=== PATIENT | female | born 1995 | race African-American/Black ===

== ENCOUNTER 2020-07-28 22:58 | Emergency (ER) | payer OTHER ==
[~2020-07-28] VITALS: Ht 175.3 cm; Wt 149.7 kg
[2020-07-28 23:41] VITALS: Ht 175.3 cm; Wt 149.7 kg
[2020-07-29 00:34] LABS: microscopic required? NO
[2020-07-29 01:01] LABS: BASOPHIL % 1.5 % (0-2); PLATELET COUNT 215 x10^3mcL (130-400); RED CELL DISTRIBUTION WIDTH 12.7 % (11.5-14.5)
[2020-07-29 01:03] LABS: urine erythrocyte NEGATIVE (NEGATIVE)
[2020-07-29 01:15] LABS: CALCIUM 8.8 mg/dL (8.5-10.1); CARBON DIOXIDE 28.6 mmol/L (21-32); CHLORIDE SERUM 103 mmol/L (98-107); CREATININE SERUM 0.7 mg/dL (0.6-1.0); GFR1 > 60 mL/min; GLUCOSE SERUM 94 mg/dL (74-106); SODIUM SERUM 140 mmol/L (136-145)
[2020-07-29 01:16] LABS: AMPHETAMINE QUAL UR NONE DETECTED (See below)
[2020-07-29 01:20] LABS: ALKALINE PHOSPHATASE 71 U/L (46-116); ALT/SGPT 12 U/L (14-59); AST/SGOT 8 U/L (15-37); BILIRUBIN TOTAL 0.2 mg/dL (0.20-1.00); TOTAL PROTEIN, SERUM 7.4 g/dL (6.4-8.2)
[2020-07-29 01:21] LABS: ALBUMIN 3.2 g/dL (3.4-5.0)
[2020-07-29 06:46] LABS: BASOPHIL % 0.6 % (0.2-1.3); PLATELET COUNT 200 x10^3mcL (179-408); RED CELL DISTRIBUTION WIDTH 13.2 % (12.3-17.7)
[2020-07-29 07:22] VITALS: BP 95/56
== END 2020-07-29 07:32 | disposition home or self-care (01) ==
LOC: ED 22:58
PROVIDERS: Student in an Organized Health Care Education/Training Program
DX: T42.4X2A Poisoning by benzodiazepines, intentional self-harm, initial encounter (principal); Z88.8 Allergy status to other drugs, medicaments and biological substances; Y92.89 Other specified places as the place of occurrence of the external cause
CPT/HCPCS: G0480